=== PATIENT | male | born 1955 | race Caucasian/White ===

== ENCOUNTER → 2019-11-21 | Outpatient (CLI) | payer MEDICARE ==
[~2019-11-21] MED LIST: FLUO10CA13 PO; SILO8CAP2 PO
--- NOTE | 2019-11-21 16:34 | KCIC ---
EXAM: MRI BRAIN WITHOUT CONTRAST. HISTORY: Persistent dizziness, vertigo. TECHNIQUE: Magnetic resonance images of the brain and internal auditory canals were obtained without intravenous contrast. COMPARISON: None. FINDINGS: There is no diffusion restriction. There are no T1 or T2 signal abnormalities. The ventricles are normal in size and position. The temporal bones, cerebellopontine angles and internal auditory canals are unremarkable without contrast. There is mild diffuse mucosal thickening in the paranasal sinuses. There are changes of bilateral cataract surgery. The temporal bones are unremarkable. The calvarium demonstrates no suspicious lesions. IMPRESSION: 1. Unremarkable examination of the cerebellopontine angles and internal auditory canals without contrast. A postcontrast study would increase sensitivity for small intracanalicular lesions if there is persistent concern. Electronically signed by: Jazz Mallory MD (11/21/2019 4:31 PM) [facility]
== END | disposition home or self-care (01) ==
LOC: KCIC MRI 15:30
PROVIDERS: ATTEND Family Medicine
DX: J34.89 Other specified disorders of nose and nasal sinuses (principal)
CPT/HCPCS: 70551